=== PATIENT | female | born 1995 | race Caucasian/White ===

== ENCOUNTER → 2016-09-03 | Outpatient (CLI) | payer OTHER ==
--- NOTE | 2016-09-03 14:01 | MAMMOGRAPHY REPORT ---
ULTRASOUND OF RIGHT BREAST: 09/03/2016 CLINICAL HISTORY: 21-year-old woman presents with a sensitive/painful lump in the right lateral [address] for approximately one month. She describes the lump as a ridge that is approximately the size of a grape. She reports the pain is worst with palpation and it is becoming increasingly painful. No skin changes, nipple discharge or family history of breast cancer. COMPARISON: No prior exams were available for comparison. FINDINGS: Real-time high-resolution ultrasound was performed in the area of palpable, painful lump pointed out by the patient (within the 10:00 right breast, 5-6 cm from the nipple). On ultrasound, there is normal fatty and glandular tissue without evidence of a discrete solid or cystic mass. The patient noted pain while scanning over the right 10:00 breast, 600 m from the nipple. On palpation , I did not feel a discrete firm mass and the patient was unable to pinpoint this lump with 1 finger ; she simple he described a broader area in the 9:00 to 10:00 lateral right breast. IMPRESSION: ACR BI-RADS CATEGORY 1: NEGATIVE There is no sonographic evidence of malignancy or other suspicious abnormality to explain the tender lump in the 10:00 right breast. Therefore, clinical follow-up is recommended, as biopsy of a clini daniel suspicious mass should not be precluded by negative imaging. Conservative options for breast pain were discussed including: Ibuprofen, hot compresses, mineral supplements and Evening [place]. These results and recommendations were discussed with the patient at the time of the exam. Neetu Bruce M.D. ay/:09/03/2016 09:18:46 Mine Development Engineer: Dr. Neetu Bruce, [facility] letter sent: Normal 1/2 BI-RADS Code: ACR BI-RADS Category 1: Negative
== END | disposition home or self-care (01) ==
LOC: C.MAMM 08:45
PROVIDERS: ATTEND Nurse Practitioner Women's Health
DX: N63 Unspecified lump in breast (principal)